=== PATIENT | male | born 1995 | race Two or more races ===

== ENCOUNTER 2025-03-13 06:44 | Emergency (ER) | payer MEDICAID, OTHER ==
[~2025-03-13] VITALS: Ht 172.7 cm; Wt 79.5 kg
[~2025-03-13 06:44] MED LIST: IBUP-1984 PO
[2025-03-13 06:48] VITALS: BP 142/85; PULSE 133; RESP 18; TEMP 98.2; O2SAT 100
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
== END 2025-03-13 07:48 ==
LOC: ER 06:44
DX: Z00.00 Encounter for general adult medical examination without abnormal findings (principal); G89.29 Other chronic pain; Z88.2 Allergy status to sulfonamides; Z88.8 Allergy status to other drugs, medicaments and biological substances; Z79.899 Other long term (current) drug therapy
CPT/HCPCS: 99283; A6258; A6449